=== PATIENT | female | born 1950 | race Caucasian/White ===

== ENCOUNTER → 2020-05-01 13:13 | Outpatient (BNVA) | payer MEDICARE, SELFPAY | PROVIDERS: Family Provider Nurse Practitioner Family; PCP Family Medicine; Visit Provider Nurse Practitioner Family | DX: I10 Essential (primary) hypertension (principal); E55.9 Vitamin D deficiency, unspecified | CPT/HCPCS: 80053; 80061; 82306; 84443; 85025 ==

== ENCOUNTER → 2020-07-31 16:18 | Outpatient (BNVA) | payer MEDICARE, SELFPAY | PROVIDERS: Family Provider Nurse Practitioner Family; PCP Family Medicine; Visit Provider Family Medicine | DX: R30.0 Dysuria (principal) | CPT/HCPCS: 81000 ==

== ENCOUNTER 2020-10-01 09:32 | Outpatient (CLI) | payer MEDICARE, SELFPAY ==
[2020-10-01] MEDS: iohexol 300 mg/mL 50 mL Btl PO (10:50)
--- NOTE | 2020-10-01 11:00 | CT_ITS ---
WS: [id number] CT ABDOMEN AND PELVIS WITH CONTRAST HISTORY: K57.92 - Diverticulitis of intestine, part unspecified, without perforation or abscess witho ut bleeding TECHNIQUE: Imaging performed of the abdomen and pelvis with IV contrast. Single phase imaging of the abdomen. Coronal and sagittal reformats are submitted. All CT scans at [facility] use at least one of these dose optimization techniques: automated exposure control; mA and/or kV adjustment per patient size (includes targeted exams where dose is matched to clinical indication); or iterativ e reconstruction. IV CONTRAST: Omnipaque 300; 95 mL IV. Oral contrast: Yes. DLP: 1174.29 mGycm COMPARISON: 03/24/2016 Lower thorax: Lung bases are clear. Heart is normal size. Large hiatal hernia. Greater than 50% of th e stomach is intrathoracic. Liver/biliary system: Normal size liver. There are a few hypodensities within the liver. The largest measuring 12 mm is unchanged since 2016. There is a smaller hypodensity which was also present in the periphery. No solid mass. Normal portal vein. No duct dilatation. Gallbladder: Status post cholecystectomy. Pancreas: Normal. Spleen: Granulomata. Normal size. Adrenal glands: Normal. Right kidney: Normal. Left kidney: Normal. Aorta: Normal. Lymphadenopathy: None. Free fluid: None. GI tract: Diffuse diverticulosis throughout the colon. Innumerable diverticula are present. There are mild inflammatory changes surrounding the diverticula in the sigmoid. No adjacent free air. There is no obstructive pattern. No abscess or focal free fluid. The appendix has been removed. Abdominal wall: Fat-containing umbilical hernia. Pelvis: Well-distended urinary bladder. Prior hysterectomy. Bones: Mild S-shaped scoliosis lower thoracic and lumbar spine. No osteoblastic or osteolytic disease . CT/CT abdomen pelvis w con* [id number] IMPRESSION: 1. Mild acute sigmoid diverticulitis. No abscess or free fluid. 2. Diffuse diverticulosis throughout the colon. 3. Large hiatal hernia. 4. Hepatic cysts are stable. 5. Prior cholecystectomy, appendectomy and hysterectomy.
[2020-10-01] MEDS: iohexol 300 mg/mL 100 mL Btl IV (11:07)
== END 2020-10-01 09:33 | disposition home or self-care (01) ==
LOC: RADWPI 09:37
PROVIDERS: PCP Family Medicine; Visit Provider Nurse Practitioner Family
DX: K57.92 Diverticulitis of intestine, part unspecified, without perforation or abscess without bleeding (principal); K57.30 Diverticulosis of large intestine without perforation or abscess without bleeding; K44.9 Diaphragmatic hernia without obstruction or gangrene; K76.89 Other specified diseases of liver; Z90.49 Acquired absence of other specified parts of digestive tract; Q42.8 Congenital absence, atresia and stenosis of other parts of large intestine; Z90.710 Acquired absence of both cervix and uterus
CPT/HCPCS: 74177; 80053; 81003; 82150; 83690; 85025; 87086; Q9967

== ENCOUNTER → 2020-12-02 13:30 | Outpatient (BNVA) | payer MEDICARE, SELFPAY | PROVIDERS: PCP Family Medicine; Visit Provider Nurse Practitioner Family | DX: Z01.812 Encounter for preprocedural laboratory examination (principal); Z20.822 Contact with and (suspected) exposure to COVID-19 | CPT/HCPCS: 87635 ==

== ENCOUNTER → 2021-01-24 11:54 | Outpatient (BNVA) | payer MEDICARE, SELFPAY | PROVIDERS: PCP Family Medicine; Visit Provider Nurse Practitioner Family | DX: I10 Essential (primary) hypertension (principal); E55.9 Vitamin D deficiency, unspecified; B86 Scabies; E78.5 Hyperlipidemia, unspecified; K57.92 Diverticulitis of intestine, part unspecified, without perforation or abscess without bleeding; K21.9 Gastro-esophageal reflux disease without esophagitis | CPT/HCPCS: 80053; 80061; 82306; 84443; 85025 ==

== ENCOUNTER → 2021-11-26 10:12 | Outpatient (BNVA) | payer MEDICARE, SELFPAY | PROVIDERS: PCP Nurse Practitioner Family; Visit Provider Nurse Practitioner Family | DX: I10 Essential (primary) hypertension (principal); E55.9 Vitamin D deficiency, unspecified; E78.5 Hyperlipidemia, unspecified; K57.92 Diverticulitis of intestine, part unspecified, without perforation or abscess without bleeding; K21.9 Gastro-esophageal reflux disease without esophagitis | CPT/HCPCS: 80053; 80061; 81003; 82306; 84443; 85025 ==

== ENCOUNTER 2021-12-03 17:47 | Emergency (ER) | payer MEDICARE, SELFPAY ==
[2021-12-03 18:03] VITALS: BP 132/82; PULSE 104; RESP 16; TEMP 36.5; O2SAT 95; BMI 29.1
--- NOTE | 2021-12-03 18:09 | W.ED.ABDPA2 ---
HPI - Abdominal Pain General: Chief Complaint: Abdominal Pain Stated Complaint: Pt States a flare up of dibraticulitis Time Seen by Provider: 12/03/21 18:08 History of Present Illness: Ms Mcclellan is a 71-year-old lady with history of hypertension, hyperlipidemia, extensive diverticulosis with frequent episodes of diverticulitis who presents to the emergency department due to left lower quadrant pain concerning for diverticulitis. She reports symptom onset for 5 days ago and was without specific provoking factor gradual. She noticed left lower quadrant burning pain which initially was mild however since worsened. She has associated fevers, nausea, vomiting, and diarrhea. Vomit and diarrhea are nonbloody. There is some radiation to the right abdomen. Symptoms are worse with movement and attempting to eat. She saw her primary care provider and has been on antibiotics for about 3 days but has failed to improve. Overall course of symptoms has been worsening. Intensity is moderate. The symptoms are similar to prior episodes. She does have a history of abdominal surgeries including colon resection. No other specific changes in health, exacerbating, or alleviating factors identified. Onset (ago): day(s) Pain Consistency: constant Location: LLQ Severity: moderate Quality: burning Radiation: RLQ Exacerbating factors: eating and movement Relieving factors: nothing Associated Symptoms: Reports diarrhea, nausea, poor appetite and vomiting Review of Systems General: Reports: 10 or more systems reviewed and unremarkable except in HPI and below GI: Reports: nausea, vomiting and diarrhea [facility] ED PFSH: Medical History (Updated 12/03/21 @ 22:13 by Charles Guthrie MD) GERD (gastroesophageal reflux disease) Hypertension Osteoarthritis Vitamin D deficiency Surgical History History of hernia repair History of hysterectomy History of knee replacement Social History Smoking and tobacco status: never smoked Second hand smoke exposure: No Alcohol intake: never Lives independently: Yes Household members: spouse Marital status: service: No Current occupational status: retired History of recent travel: No Current gender identity: Female Special kadie needs: No Physical Exam Const: COMMON NORMALS: alert GENERAL APPEARANCE: cooperative, well developed and ill appearing (Mildly) HENMT: COMMON NORMALS: normocephalic and atraumatic HEAD & SCALP: normocephalic and atraumatic THROAT: posterior oropharynx normal Eye: COMMON NORMALS: conjunctivae normal CONJUNCTIVA: Yes conjunctivae normal SCLERA: sclerae normal Neck/C-Spine: COMMON NORMALS: supple GENERAL: Yes trachea midline Resp: COMMON NORMALS: normal respiratory effort and clear to auscultation bilaterally EFFORT & INSPECTION: Yes able to speak in complete sentences AUSCULTATION: clear to auscultation bilaterally Cardio: COMMON NORMALS: regular rhythm RATE: tachycardic RHYTHM: regular rhythm GI: COMMON NORMALS: Soft to palpation PALPATION: Yes Soft to palpation, Yes Tenderness to palpation present (GI) Details: LLQ, No Guarding due to palpation present (GI) and No Rigid due to palpation Extremity: GENERAL: Yes normal exam except as noted and No edema Neuro: COMMON NORMALS: moves all extremities SENSORIUM/ORIENTATION: Yes alert and No Orientation impaired Psych: COMMON NORMALS: mental status grossly normal and Normal thought process present THOUGHT PROCESS: Normal thought process present Course ED course: - Patient was seen and evaluated by me at bedside - Patient placed on cardiac monitors, IV access obtained - Initial evaluation notable for exam as above - Labs personally interpreted by me - Symptom treatment ordered - Labs notable for no leukocytosis, normal hemoglobin. Metabolic panel without acute derangement to explain symptoms. Squamous epithelial contamination on urinalysis without concerning findings for UTI. - Imaging notable for no acute finding on CT abdomen pelvis to explain patient's symptoms. - Upon serial reexamination after treatment the patient was improved - Based on patient history, evaluation, and testing as interpreted the most likely cause of the patient's condition is abdominal pain of uncertain etiology. Certainly the patient has been on antibiotics for a few days and this may be suppressing findings. It is certainly plausible that diverticulitis is improving with treatment. Patient is nontoxic and no evidence of sepsis. She is improved with treatment. - The results of ED evaluation were discussed with the patient including prescriptions and/or symptomatic cares (if applicable) including appropriate and responsible use, followup plan, and return precautions. The patient verbalized understanding and felt safe for discharge. - Patient discharged in satisfactory condition. Note: Click bubbles or prepopulated delacruz in note writing are used for assistance with data collection and billing and are inherently more limited than narrative and other text portions of this note. Please use narrative for additional clinical history and defer to narrative/free test for any case of contradictory information. If information appears in only free text or click bubble it should be considered present or absent as reported. Please contact note typewriter aligner for clarifications of clinical information or contradictory information. MDM is a brief summary, contradictory or erroneous seeming information should be clarified and full note should be reviewed. Vital Signs: Vital signs: Vital Signs Temperature 97.7 F 12/03/21 18:03 Pulse Rate 82 12/03/21 22:39 Respiratory Rate 18 12/03/21 22:39 Blood Pressure 147/78 12/03/21 22:39 Pulse Oximetry 97 12/03/21 22:39 MDM - Abdominal Pain Medical Decision Making 71-year-old lady with history of recurrent diverticulitis presenting with left lower quadrant abdominal pain associated with diarrhea, nausea, vomiting. Nontoxic in appearance, labs unremarkable. CT unremarkable. ?Improved from antibiotics that she is taking versus other unspecified cause of abdominal pain. Patient does have a history of endoscopy. Given improvement in symptoms and overall clinical picture she is satisfactory for outpatient management with analgesia, antiemetic, and strict return precautions. Medical Records I reviewed the patient's medical records. Lab Data I reviewed the patient's lab results. : 12/03/21 19:15 12/03/21 19:15 Labs/Radiology: Radiology Impressions Abdomen/Pelvis CT 12/03/21 19:03 IMPRESSION: 1. No acute findings. 2. Additional incidental findings described in the body of the report. Laboratory Results WBC 5.9 10^3/uL (4.0-10.0) 12/03/21 19:15 RBC 4.52 10^6/uL (4.1-5.3) 12/03/21 19:15 Hgb 13.6 g/dL (11.5-15.3) 12/03/21 19:15 Hct 42.9 % (37.0-47.0) 12/03/21 19:15 MCV 94.9 fl (81-99) 12/03/21 19:15 MCH 30.1 pg (28.0-34.0) 12/03/21 19:15 MCHC 31.7 g/dL (30.0-36.0) 12/03/21 19:15 RDW 13.1 % (12.1-15.1) 12/03/21 19:15 Plt Count 250 10^3/cmm (130-400) 12/03/21 19:15 MPV 9.9 fL (7.4-10.4) 12/03/21 19:15 Neut % (Auto) 83.6 % 12/03/21 19:15 Lymph % (Auto) 11.9 % 12/03/21 19:15 [place] % (Auto) 3.7 % 12/03/21 19:15 Eos % (Auto) 0.3 % 12/03/21 19:15 Baso % (Auto) 0.3 % 12/03/21 19:15 Neut # (Auto) 4.93 10^3/uL (1.8-7.7) 12/03/21 19:15 Lymph # (Auto) 0.7 10^3/uL (0.8-4.8) L 12/03/21 19:15 [place] # (Auto) 0.2 10^3/uL (0.2-0.9) 12/03/21 19:15 Eos # (Auto) 0.0 10^3/uL (0.0-0.8) 12/03/21 19:15 Baso # (Auto) 0.0 10^3/uL (0.0-0.1) 12/03/21 19:15 Nucleated RBC % (auto) 0 % 12/03/21 19:15 Nucleated RBCs # 0.0 /100WBC 12/03/21 19:15 Sodium 137 mmol/L (136-145) 12/03/21 19:15 Potassium 4.0 mmol/L (3.5-5.1) 12/03/21 19:15 Chloride 101 mmol/L (98-107) 12/03/21 19:15 Carbon Dioxide 23 mmol/L (22-29) 12/03/21 19:15 Anion Gap 17.0 (5-19) 12/03/21 19:15 BUN 18 mg/dL (8-23) 12/03/21 19:15 Creatinine 0.8 mg/dL (0.5-0.9) 12/03/21 19:15 GFR Calculation Not Reportable 12/03/21 19:15 Glucose 109 mg/dL (65-115) 12/03/21 19:15 Calculated Osmolality 286 mOsm/kg (285-295) 12/03/21 19:15 Lactic Acid 1.1 mmol/L (0.5-2.2) 12/03/21 19:15 Calcium 8.2 mg/dL (8.5-10.5) L 12/03/21 19:15 Total Bilirubin 0.7 mg/dL (0.15-1.2) 12/03/21 19:15 AST 32 U/L (0-32) 12/03/21 19:15 ALT 20 U/L (0-33) 12/03/21 19:15 Alkaline Phosphatase 87 IU/L (35-105) 12/03/21 19:15 Total Protein 7.8 g/dL (6.6-8.7) 12/03/21 19:15 Albumin 4.4 g/dL (3.5-5.2) 12/03/21 19:15 Globulin 3.4 g/dL (1.3-4.6) 12/03/21 19:15 Lipase 17 U/L (13-60) 12/03/21 19:15 Urine Color Yellow (Yellow) 12/03/21 21:08 Urine Appearance Sl hazy (CLEAR) 12/03/21 21:08 Urine pH 5 (5-7) 12/03/21 21:08 Ur Specific [place] 1.015 (1.005-1.030) 12/03/21 21:08 Urine Protein Neg (Negative) 12/03/21 21:08 Urine Glucose (UA) Norm (Normal) 12/03/21 21:08 Urine Ketones 1+ (Negative) H 12/03/21 21:08 Urine Blood Neg (Negative) 12/03/21 21:08 Urine Nitrate Negative (Negative) 12/03/21 21:08 Urine Bilirubin 1+ (Negative) H 12/03/21 21:08 Urine Urobilinogen 1 mg/dL (Negative) H 12/03/21 21:08 Ur Leukocyte Esterase Trace (Negative) H 12/03/21 21:08 Urine RBC 0-4 /hpf (0-2) H 12/03/21 21:08 Urine WBC 0-4 /hpf (0-5) H 12/03/21 21:08 Ur Squamous Epith Cells 15-25 /hpf (0-5) H 12/03/21 21:08 Amorphous Sediment Not Reportable 12/03/21 21:08 Urine Bacteria Trace /hpf (NONE) 12/03/21 21:08 Urine Mucus Trace /hpf 12/03/21 21:08 Discharge Plan Discharge Patient Disposition: Home Clinical Impression: Abdominal pain, Nausea, vomiting, and diarrhea Condition: Stable Prescriptions: New ondansetron 4 mg tablet,disintegrating 4 mg PO TID PRN (Reason: nausea and vomiting) Qty: 15 0RF oxycodone 5 mg tablet 5 mg PO Q4H PRN (Reason: pain) Qty: 10 0RF No Action fluticasone propionate [Flonase Allergy Relief] 50 mcg/actuation spray,suspension 2 spray INTRANASAL QDAY Qty: 9.9 0RF Rx Instructions: administer into each nostril aspirin 325 mg tablet 325 mg PO DAILY 0RF promethazine-DM 6.25-15 mg/5 mL syrup 5 ml PO Q6H Qty: 118 1RF metronidazole 500 mg tablet 500 mg PO TID 14 Days Qty: 42 0RF sulfamethoxazole-trimethoprim [Bactrim DS] 800-160 mg tablet 1 tab PO BID Qty: 28 0RF metoprolol tartrate 25 mg tablet See Rx Instructions .ROUTE .COMPLEX Qty: 180 3RF Dose Instruction: TAKE 1 TABLET BY MOUTH TWICE DAILY Rx Instructions: TAKE 1 TABLET BY MOUTH TWICE DAILY omeprazole 20 mg capsule,delayed release(DR/EC) See Rx Instructions .ROUTE .COMPLEX Qty: 90 3RF Dose Instruction: TAKE 1 CAPSULE BY MOUTH DAILY Rx Instructions: TAKE 1 CAPSULE BY MOUTH DAILY cholecalciferol (vitamin D3) 1,250 mcg (50,000 unit) tablet 1,250 mcg PO .COMPLEX Qty: 12 1RF Rx Instructions: 1,250 mcg PO weekly; Discharge Orders: Discharge ED (Routine); Ordered 12/03/21 Ordered By: Charles Guthrie Referrals: Azra Oliver, [employer]HANGER APPRENTICE [Primary Care Provider] - Discharge Diet: Advance as tolerated and Clear Liquid Discharge Activity: Increase activity as tolerated Patient Instructions: Diverticulitis (ED), Diverticulitis Diet (ED), Abdominal Pain (ED), Opioid Safety Activity Restrictions/Additional Instructions: Thank you for visiting the emergency department. You were seen and evaluated for abdominal pain, vomiting, diarrhea. The exact cause of your symptoms is unclear. I believe that your symptoms may be related to your diverticulitis however given your course of antibiotics we do not see significant abnormality on CT or laboratory studies. Please continue your antibiotics. You will be given a prescription for pain medication and nausea medication. Please follow-up with your primary care provider. Please return to the emergency department for worsening symptoms or anything else that you are concerned about and feel needs emergency department evaluation. Coding Level of Care Code ED Glass Sagger for Marc Truong Exam Comprehensive
[2021-12-03 18:23] VITALS: BP 148/87; PULSE 95; RESP 18; O2SAT 97
--- NOTE | 2021-12-03 19:03 | CTR_ITS ---
PROCEDURE INFORMATION: Exam: CT Abdomen And Pelvis With Contrast Exam date and time: 12/03/2021 8:21 PM Age: 71 years old Clinical indication: Abdominal pain; Generalized; Additional info: Llq pain, n/v/d, HX diverticulitis TECHNIQUE: Imaging protocol: Computed tomography of the abdomen and pelvis with contrast. Radiation optimization: All CT scans at this facility use at least one of these dose optimization techniques: automated exposure control; mA and/or kV adjustment per patient size (includes targeted exams where dose is matched to clinical indication); or iterative reconstruction. Contrast material: OMNI 300; Contrast volume: 95 ml; Contrast route: INTRAVENOUS (IV); COMPARISON: CT abdomen pelvis w con* [id number] 10/01/2020 11:04 AM RADIATION DOSE METRICS: Total DLP (mGy-cm): 1480.85 FINDINGS: Liver: Scattered cysts in the right hepatic lobe measuring up to 1.6 cm in size. Gallbladder and bile ducts: Cholecystectomy with prominence of the common hepatic duct up to 1.3 cm likely secondary to reservoir effect. Pancreas: Normal. No ductal dilation. Spleen: Normal. No splenomegaly. Adrenal glands: Normal. No mass. Kidneys and ureters: Subcentimeter cysts. No hydronephrosis. Stomach and bowel: Moderate-sized hiatal hernia containing the proximal portion of the stomach. Sequela of sigmoidectomy. Colonic diverticulosis without findings of acute diverticulitis. No obstruction. No mucosal thickening. Appendix: No evidence of appendicitis. Intraperitoneal space: Unremarkable. No free air. No significant fluid collection. Arteries: Unremarkable. No abdominal aortic aneurysm. Lymph nodes: Unremarkable. No enlarged lymph nodes. Urinary bladder: Unremarkable as visualized. Reproductive: Hysterectomy. Bones/joints: No acute fracture. Soft tissues: Small fat containing umbilical hernia. CT/CT abdomen pelvis w con* [id number] IMPRESSION: 1. No acute findings. 2. Additional incidental findings described in the body of the report.
[2021-12-03 19:24] LABS: Basophils % 0.3 %; Eosinophils % 0.3 %; Hematocrit 42.9 % (37.0-47.0); Hemoglobin 13.6 g/dL (11.5-15.3); Lymphocytes # 0.7 10^3/uL (0.8-4.8); Lymphocytes % 11.9 %; Mean Corpuscular HGB Conc 31.7 g/dL (30.0-36.0); Mean Corpuscular Hemoglobin 30.1 pg (28.0-34.0); Mean Corpuscular Volume 94.9 fl (81-99); Mean Platelet Volume 9.9 fL (7.4-10.4); Monocytes # 0.2 10^3/uL (0.2-0.9); Monocytes % 3.7 %; Neutrophils # 4.93 10^3/uL (1.8-7.7); Neutrophils % 83.6 %; Nucleated Red Blood Cells % 0 %; Platelet Count 250 10^3/cmm (130-400); Red Blood Count 4.52 10^6/uL (4.1-5.3); Red Cell Distribution Width 13.1 % (12.1-15.1); White Blood Count 5.9 10^3/uL (4.0-10.0)
[2021-12-03 19:44] LABS: Lactic Sepsis W/Reflex 1.1 mmol/L (0.5-2.2)
[2021-12-03 19:49] VITALS: RESP 18
[2021-12-03] MEDS: fentaNYL 50 mcg/mL INJ 2mL IVP (19:49)
[2021-12-03] MEDS: ondansetron 2 mg/ML SDV 2 mL 4 MG IVP (19:49)
[2021-12-03] MEDS: lactated ringers 500 ML 999 ML IV ×2 (19:50→19:51)
[2021-12-03 19:53] LABS: Alanine Aminotransferase 20 U/L (0-33); Albumin Level 4.4 g/dL (3.5-5.2); Alkaline Phosphatase 87 IU/L (35-105); Aspartate Amino Transferase 32 U/L (0-32); Blood Urea Nitrogen 18 mg/dL (8-23); Calcium 8.2 mg/dL (8.5-10.5); Carbon Dioxide 23 mmol/L (22-29); Chloride 101 mmol/L (98-107); Globulin 3.4 g/dL (1.3-4.6); Glucose 109 mg/dL (65-115); Lipase 17 U/L (13-60); Osmolality Calculated 286 mOsm/kg (285-295); Sodium 137 mmol/L (136-145); Total Bilirubin 0.7 mg/dL (0.15-1.2); Total Protein 7.8 g/dL (6.6-8.7)
[2021-12-03] MEDS: iohexol 300 mg/mL 100 mL Btl IV (20:30)
[2021-12-03 21:31] VITALS: BP 134/90; PULSE 80; RESP 20; O2SAT 98
[2021-12-03 21:42] LABS: Bilirubin Urine 1+ (Negative); Blood Urine Neg (Negative); Glucose Urine UA Norm (Normal); Ketones Urine 1+ (Negative); Nitrate Urine Negative (Negative); Protein Urine Neg (Negative); Specific Gravity, Urine 1.015 (1.005-1.030); Urine Appearance SL Hazy (CLEAR); Urine Color Yellow (Yellow); Urobilinogen Urine 1 mg/dL (Negative); pH Urine 5 (5-7)
[2021-12-03 21:43] LABS: Add Urine Microscopic? YES; Leukocyte Esterase Urine Trace (Negative)
[2021-12-03 21:44] LABS: Add Urine Culture? No; Bacteria Urine TRACE /hpf; Mucus Urine TRACE /hpf; RBC Urine 0-4 /hpf (0-2); Squamous Epithelial Cell Urine 15-25 /hpf (0-5); WBC Urine 0-4 /hpf (0-5)
[2021-12-03 22:39] VITALS: BP 147/78; PULSE 82; RESP 18; O2SAT 97
== END 2021-12-03 22:40 | disposition home or self-care (01) ==
PROVIDERS: Emergency Medicine; Emergency Provider Emergency Medicine; PCP Nurse Practitioner Family
DX: R10.9 Unspecified abdominal pain (principal); R11.2 Nausea with vomiting, unspecified; R19.7 Diarrhea, unspecified; K57.90 Diverticulosis of intestine, part unspecified, without perforation or abscess without bleeding
CPT/HCPCS: 74177; 80053; 81001; 83605; 83690; 85025; 96374; 96375; 99284; J2405; J3010; Q9967

== ENCOUNTER 2021-12-25 06:00 | Outpatient (RCR) | payer MEDICARE, SELFPAY | END 2022-01-20 23:59 | disposition home or self-care (01) | LOC: TPT 06:00 | PROVIDERS: PCP Nurse Practitioner Family; Referring Provider Nurse Practitioner Family; Visit Provider Nurse Practitioner Family | DX: R53.1 Weakness (principal) | CPT/HCPCS: 97110; 97163 ==

== ENCOUNTER → 2022-02-25 15:55 | Outpatient (BNVA) | payer MEDICARE, SELFPAY | PROVIDERS: PCP Nurse Practitioner Family; Visit Provider Nurse Practitioner Family | DX: M16.11 Unilateral primary osteoarthritis, right hip (principal); M25.551 Pain in right hip | CPT/HCPCS: 73502 ==

== ENCOUNTER → 2022-03-03 14:36 | Outpatient (BNVA) | payer MEDICARE, SELFPAY | PROVIDERS: PCP Nurse Practitioner Family; Referring Provider Nurse Practitioner Family; Visit Provider Orthopaedic Surgery | DX: M25.551 Pain in right hip (principal); M79.7 Fibromyalgia | CPT/HCPCS: 99203 ==

== ENCOUNTER → 2022-08-18 18:03 | Outpatient (BNVA) | payer MEDICARE, SELFPAY | PROVIDERS: PCP Nurse Practitioner Family; Visit Provider Nurse Practitioner Family | DX: R30.0 Dysuria (principal); J18.9 Pneumonia, unspecified organism; M25.571 Pain in right ankle and joints of right foot; B37.9 Candidiasis, unspecified | CPT/HCPCS: 80053; 84550 ==

== ENCOUNTER → 2022-08-31 10:34 | Outpatient (BNVA) | payer MEDICARE, SELFPAY | PROVIDERS: PCP Nurse Practitioner Family; Visit Provider Nurse Practitioner Family | DX: M79.671 Pain in right foot (principal); M25.571 Pain in right ankle and joints of right foot | CPT/HCPCS: 73610; 73630 ==

== ENCOUNTER → 2022-09-23 08:47 | Outpatient (BNVA) | payer MEDICARE, SELFPAY | PROVIDERS: PCP Nurse Practitioner Family; Visit Provider Podiatrist Foot & Ankle Surgery | DX: M72.2 Plantar fascial fibromatosis (principal) | CPT/HCPCS: 99203 ==

== ENCOUNTER 2022-11-16 14:24 | Outpatient (CLI) | payer MEDICARE, SELFPAY | END 2022-11-16 14:25 | disposition home or self-care (01) | LOC: SPT 14:25 | PROVIDERS: PCP Nurse Practitioner Family; Visit Provider Podiatrist Foot & Ankle Surgery | DX: Z46.89 Encounter for fitting and adjustment of other specified devices (principal); M72.2 Plantar fascial fibromatosis | CPT/HCPCS: 97760; 99213; L4397 ==

== ENCOUNTER → 2023-01-05 13:30 | Outpatient (BNVA) | payer MEDICARE, SELFPAY | PROVIDERS: PCP Nurse Practitioner Family; Visit Provider Nurse Practitioner Family | DX: E78.5 Hyperlipidemia, unspecified (principal); M79.7 Fibromyalgia; I10 Essential (primary) hypertension; K21.9 Gastro-esophageal reflux disease without esophagitis; E55.9 Vitamin D deficiency, unspecified | CPT/HCPCS: 80053; 80061; 82306; 84443 ==

== ENCOUNTER → 2023-01-11 11:38 | Outpatient (BNVA) | payer MEDICARE, SELFPAY | PROVIDERS: PCP Nurse Practitioner Family; Visit Provider Nurse Practitioner Family | DX: R94.4 Abnormal results of kidney function studies (principal); N18.6 End stage renal disease; R30.0 Dysuria | CPT/HCPCS: 80053; 82043 ==

== ENCOUNTER 2023-01-12 07:59 | Outpatient (CLI) | payer MEDICARE, SELFPAY ==
[2023-01-12] MEDS: iohexol 350 mg/mL 500 mL Btl (per mL) PO (08:35)
--- NOTE | 2023-01-12 09:30 | CT_ITS ---
WS: [id number] CT ABDOMEN AND PELVIS NONCONTRAST HISTORY: Hiatal hernia TECHNIQUE: Imaging performed through the abdomen and pelvis. Coronal and sagittal reformats are submi tted. All CT scans at [facility] use at least one of these dose optimization techniques: auto mated exposure control; mA and/or kV adjustment per patient size (includes targeted exams where dose is matched to clinical indication); or iterative reconstruction. DLP: 445.67 mGy.cm COMPARISON: 12/03/2021 Lower thorax: Lung bases are clear. Visualized heart is normal. Large hiatal hernia. Liver: Normal size liver. Hepatic granulomatous. Stable low-attenuation masses in the RIGHT lobe of t he liver with the largest measuring 1.6 cm in diameter. No bile duct dilatation. Gallbladder: Prior cholecystectomy. Pancreas: Normal size and attenuation. Normal pancreatic duct. No pancreatitis or mass. Spleen: Granulomatous. Adrenal glands: Normal. No mass. Right kidney: Normal size kidney with no mass or hydronephrosis. Left kidney: Normal size kidney with no mass or hydronephrosis. Aorta: Mild atherosclerosis abdominal aorta with no aneurysm. No free fluid, intraperitoneal air or significant lymphadenopathy. GI tract: Large portion of the stomach is intrathoracic. No small bowel obstruction. Extensive divert icular disease throughout the entire colon. No obstructive pattern. No evidence for acute diverticuli tis. No evidence for appendicitis. Abdominal wall: Small umbilical hernia contains fat only. Pelvis: No free fluid or adenopathy. Prior hysterectomy. Minimally distended urinary bladder. Osseous structures: Unremarkable. CT/CT abdomen pelvis wo con [id number] IMPRESSION: 1. Cloud diverticulosis. Extensive diverticular disease without evidence for acu te diverticulitis and no obstruction. 2. Prior hysterectomy and cholecystectomy. 3. Stable hepatic cysts. 4. No renal obstruction. 5. Large hiatal hernia.
== END 2023-01-12 08:00 | disposition home or self-care (01) ==
LOC: RAD 07:59
PROVIDERS: PCP Nurse Practitioner Family; Visit Provider Nurse Practitioner Family
DX: K44.9 Diaphragmatic hernia without obstruction or gangrene (principal); K21.9 Gastro-esophageal reflux disease without esophagitis; K57.30 Diverticulosis of large intestine without perforation or abscess without bleeding; K76.89 Other specified diseases of liver
CPT/HCPCS: 74176; Q9967

== ENCOUNTER 2023-01-20 13:57 | Outpatient (CLI) | payer MEDICARE, SELFPAY ==
--- NOTE | 2023-01-20 14:13 | MM_ITS ---
WS: [id number] BILATERAL 3D TOMOSYNTHESIS DIGITAL SCREENING MAMMOGRAPHY WITH CAD CLINICAL INFORMATION: screening HISTORY: Screening mammogram. No current complaints. COMPARISON: 2019 TECHNIQUE: Bilateral CC and MLO views. FINDINGS: The breasts are composed of heterogeneous fibroglandular density tissue, which can limit the detectio n of small underlying mass lesions. No suspicious mass, asymmetry, calcifications, or architectural d istortion. No evidence of malignancy. Punctate and lucent centered calcifications. Vascular calcifica tions. Stable well-circumscribed 1.8 cm asymmetric density 12:00 RIGHT breast. This demonstrates long -term stability. Stable subareolar calcifications RIGHT breast. MM/[id number] IMPRESSION: BI-RADS: 2-Benign FOLLOW UP: 1 Year Follow-up Recommend return to annual screening mammography.
--- NOTE | 2023-01-20 14:30 | XR_ITS ---
WS: [id number] DEXA (DUAL ENERGY X-RAY ABSORPTIOMETRY) Bone mineral density was performed using a [employer] machine. HISTORY: Screening COMPARISON: 11/24/2017 Lumbar spine BMD (L1-L4): 0.973 g/cm2 T score: -1.7 Z score: -0.7 Total hip BMD: Left: 0.804 g/cm2. T score: -1.6 Z score: -0.4 Right: 0.829 g/cm2. T score: -1.4 Z score: -0.2 10 year probability of a major osteoporotic fracture is 25%. Compared to the prior study from 11/24/2017. Lumbar spine bone mineral density has decreased by 3.2%. Bilateral hips bone mineral density has decreased by 2.7%. XR/XR DEXA axial skeleton* [id number] IMPRESSION: OSTEOPENIA based upon the WHO classification for females. Significant decrease in bone mineral density within the lumbar spine and hips s mauro the prior study.
== END 2023-01-20 13:58 | disposition home or self-care (01) ==
LOC: RAD 14:01
PROVIDERS: PCP Nurse Practitioner Family; Visit Provider Nurse Practitioner Family
DX: Z12.31 Encounter for screening mammogram for malignant neoplasm of breast (principal); Z78.0 Asymptomatic menopausal state; R94.4 Abnormal results of kidney function studies
CPT/HCPCS: 77063; 77067; 77080; 80053

== ENCOUNTER → 2023-10-11 09:54 | Outpatient (BNVA) | payer MEDICARE, SELFPAY | PROVIDERS: PCP Nurse Practitioner Family; Visit Provider Nurse Practitioner Family | DX: I10 Essential (primary) hypertension (principal); E78.5 Hyperlipidemia, unspecified; E55.9 Vitamin D deficiency, unspecified; M79.7 Fibromyalgia | CPT/HCPCS: 80053; 80061; 82306; 85025 ==

== ENCOUNTER 2023-10-13 07:50 | Outpatient (CLI) | payer MEDICARE, SELFPAY ==
--- NOTE | 2023-10-13 08:45 | US_ITS ---
WS: [id number] ULTRASOUND SOFT TISSUES HISTORY: neck lump COMPARISON: None available. TECHNIQUE: 2-D and color Doppler imaging is submitted. Palpable area is localized to the anterior upper neck. There is a complex cystic mass with thick mitchell ins and slight nodularity. No increased vascularity. There is a small tract extending superficial. Th is is most consistent with a sebaceous or epidermoid cyst. This complex cystic collection measures 7 x 3 x 5 mm. IMPRESSION: Palpable area along the mid anterior neck is most consistent with an epidermoid or sebaceous cyst.
== END 2023-10-13 07:51 | disposition home or self-care (01) ==
LOC: RAD 07:51
PROVIDERS: PCP Nurse Practitioner Family; Visit Provider Nurse Practitioner Family
DX: R22.1 Localized swelling, mass and lump, neck (principal)
CPT/HCPCS: 76536

== ENCOUNTER → 2023-11-02 12:38 | Outpatient (BNVA) | payer MEDICARE, SELFPAY | PROVIDERS: PCP Nurse Practitioner Family; Visit Provider Podiatrist Foot & Ankle Surgery | DX: L60.0 Ingrowing nail (principal) | CPT/HCPCS: 99203 ==

== ENCOUNTER 2024-01-26 12:54 | Outpatient (CLI) | payer MEDICARE, SELFPAY ==
--- NOTE | 2024-01-26 13:00 | MM_ITS ---
WS: [id number] BILATERAL 3D TOMOSYNTHESIS DIGITAL SCREENING MAMMOGRAPHY WITH CAD CLINICAL INFORMATION: screening HISTORY: Screening mammogram. No current complaints. COMPARISON: 2022 TECHNIQUE: Bilateral CC and MLO views. FINDINGS: The breasts are composed of heterogeneous fibroglandular density tissue, which can limit the detectio n of small underlying mass lesions. No suspicious mass, asymmetry, calcifications, or architectural d istortion. No evidence of malignancy. Stable dense nodular breast tissue upper outer quadrants bilate rally. Vascular calcification. A few incidental punctate and lucent centered calcifications. Long-ter m stability 1.8 cm focal asymmetric density RIGHT breast at the 12 o'clock position. MM/[id number] IMPRESSION: BI-RADS: 2-Benign FOLLOW UP: 1 Year Follow-up Recommend return to annual screening mammography.
== END 2024-01-26 12:55 | disposition home or self-care (01) ==
LOC: RAD 12:54
PROVIDERS: PCP Nurse Practitioner Family; Visit Provider Nurse Practitioner Family
DX: Z12.31 Encounter for screening mammogram for malignant neoplasm of breast (principal); R92.333 Mammographic heterogeneous density, bilateral breasts; N63.21 Unspecified lump in the left breast, upper outer quadrant; N63.11 Unspecified lump in the right breast, upper outer quadrant; R92.1 Mammographic calcification found on diagnostic imaging of breast; N64.89 Other specified disorders of breast
CPT/HCPCS: 77063; 77067

== ENCOUNTER 2024-02-29 10:11 | Outpatient (CLI) | payer MEDICARE, SELFPAY ==
--- NOTE | 2024-02-29 10:45 | CT_ITS ---
WS: [id number] LDCT LUNG CANCER SCREENING TECHNIQUE: Noncontrast CT of the chest with coronal and sagittal reformatted images. CLINICAL INFORMATION: screening COMPARISON: None. DLP: 70.30 mGy.cm DIvol: Mean CTDIvol: 1.50 (mGy) All CT scans at [facility] use at least one of these dose optimization techniques: automat ed exposure control; mA and/or kV adjustment per patient size (includes targeted exams where dose is matched to clinical indication); or iterative reconstruction. FINDINGS: 4 mm nodule along the LEFT fissure. A few tiny noncalcified nodules in the upper lobes. No other susp icious pulmonary parenchymal abnormalities. RIGHT breast nodule at 12 o'clock position with long-term stability on the prior mammograms measuring 1.5 cm. Splenic granulomas. Splenic artery calcification. Postoperative changes at the GE junction with hiata l hernia. Hepatomegaly. Nodular contour to the liver with multiple low-attenuation lesions similar to the prior CT 2022 likely hepatic cysts. Largest in the RIGHT hepatic lobe measuring 1.5 cm. Adrenal glands are normal. Nodular thyroid. Normal caliber thoracic aorta. Aortic calcification. No m ediastinal or hilar lymphadenopathy. Calcified RIGHT hilar lymph nodes. Subcutaneous likely sebaceous cyst in the midline epigastric soft tissues measuring 1.8 x 1.5 cm. Rec ommend clinical correlation. Thoracic scoliosis convex RIGHT. Moderate thoracic kyphosis. Splenic fle xure diverticulosis. CT/CT lung screening [id number] IMPRESSION: LUNG-RADS: 2-Benign Appearance or Behavior FOLLOW UP: 12 Month: Continue annual screening with LDCT
== END 2024-02-29 10:12 | disposition home or self-care (01) ==
LOC: RAD 10:11
PROVIDERS: PCP Nurse Practitioner Family; Visit Provider Nurse Practitioner Family
DX: Z12.2 Encounter for screening for malignant neoplasm of respiratory organs (principal)
CPT/HCPCS: 71271

== ENCOUNTER → 2024-08-28 13:10 | Outpatient (BNVA) | payer MEDICARE, SELFPAY | PROVIDERS: PCP Nurse Practitioner Family; Visit Provider Nurse Practitioner | DX: E55.9 Vitamin D deficiency, unspecified (principal); K57.92 Diverticulitis of intestine, part unspecified, without perforation or abscess without bleeding | CPT/HCPCS: 80053; 80061; 81000; 82306; 84443 ==

== ENCOUNTER → 2024-09-13 10:48 | Outpatient (BNVA) | payer MEDICARE, SELFPAY | PROVIDERS: PCP Nurse Practitioner; Visit Provider Nurse Practitioner | DX: E78.5 Hyperlipidemia, unspecified (principal); E55.9 Vitamin D deficiency, unspecified; K44.9 Diaphragmatic hernia without obstruction or gangrene; K21.9 Gastro-esophageal reflux disease without esophagitis; K57.92 Diverticulitis of intestine, part unspecified, without perforation or abscess without bleeding; I10 Essential (primary) hypertension; M85.89 Other specified disorders of bone density and structure, multiple sites | CPT/HCPCS: 80053; 80061; 82306; 84443 ==

== ENCOUNTER 2025-01-19 13:05 | Outpatient (CLI) | payer MEDICARE, SELFPAY ==
[2025-01-19] MEDS: iohexol 350 mg/mL 500 mL Btl (per mL) IV (14:26)
[2025-01-19] MEDS: iohexol 350 mg/mL 500 mL Btl (per mL) PO (14:26)
--- NOTE | 2025-01-19 15:30 | CTR_ITS ---
PROCEDURE INFORMATION: Exam: CT Abdomen And Pelvis With Contrast Exam date and time: 01/19/2025 2:37 PM Age: 74 years old Clinical indication: Condition or disease; Without gangrene and without obstruction; Other: Diaphragmatic; Prior surgery; Surgery date: 6+ months; Surgery type: Hiatal hernia, bowel resectin (diverticulitis), gb, appy, hyster, hernia x 2; Additional info: K44.9 - diaphragmatic hernia without obstruction or gangrene TECHNIQUE: Imaging protocol: Computed tomography of the abdomen and pelvis with contrast. Radiation optimization: All CT scans at this facility use at least one of these dose optimization techniques: automated exposure control; mA and/or kV adjustment per patient size (includes targeted exams where dose is matched to clinical indication); or iterative reconstruction. Contrast material: OMNI 350; Contrast volume: 100 ml; Contrast route: INTRAVENOUS (IV); COMPARISON: CT abdomen pelvis wo con [id number] 01/12/2023 9:14 AM RADIATION DOSE METRICS: Total DLP (mGy-cm): 530.96 FINDINGS: Lungs: Lung bases are clear. Diaphragm: No hiatal hernia. Liver: There are simple cysts in the right lobe of the liver measuring up to 17 mm. Gallbladder and biliary ducts: The gallbladder is absent. There is moderate dilation of the common bile duct and central intrahepatic ducts. Pancreas: There is mild atrophy of the pancreas. Spleen: Splenic size is normal. There are scattered calcifications consistent with healed granulomas. Adrenal glands: The adrenal glands are unremarkable. Kidneys and ureters: The kidneys are unremarkable. No hydronephrosis or stones. No ureteral dilation. Stomach and bowel: Intact gastric fundoplication. The stomach is nondistended, limiting assessment of wall thickness. The small bowel is nondilated. Severe pancolonic diverticulosis without evidence of diverticulitis. Unremarkable rectosigmoid anastomosis. Appendix: The appendix is not visible. Intraperitoneal space: There is no free air or significant intraperitoneal free fluid. 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 There is mild aortic atherosclerotic disease. The portal, splenic and superior mesenteric veins are patent. Lymph nodes: There is no lymphadenopathy in the retroperitoneum, mesentery, pelvis or inguinal regions. Urinary bladder: The urinary bladder is unremarkable. Reproductive: The uterus is absent. There is no adnexal mass or large cyst. Bones/joints: There is mild degenerative disease in the lumbar spine. The pelvis and hips are unremarkable. Soft tissues: There is laxity of the pelvic floor. Intact upper abdominal midline ventral hernia repair. There is a 17 mm subdermal nodule in the midline upper abdominal wall suggesting a sebaceous or epidermal inclusion cyst. There is a small fat containing umbilical hernia. CT/CT abdomen pelvis w con* [id number] IMPRESSION: 1. Intact gastric fundoplication. No hiatal hernia. 2. Incidental findings above.
[2025-01-19 15:39] LABS: Blood Urea Nitrogen 17 mg/dL (8-23)
== END 2025-01-19 13:06 | disposition home or self-care (01) ==
LOC: RAD 13:09
PROVIDERS: PCP Nurse Practitioner; Visit Provider Nurse Practitioner
DX: K44.9 Diaphragmatic hernia without obstruction or gangrene (principal); K21.9 Gastro-esophageal reflux disease without esophagitis; Z87.19 Personal history of other diseases of the digestive system; Z00.00 Encounter for general adult medical examination without abnormal findings; Z98.890 Other specified postprocedural states; K76.89 Other specified diseases of liver; R93.2 Abnormal findings on diagnostic imaging of liver and biliary tract; K86.89 Other specified diseases of pancreas; D73.89 Other diseases of spleen; K57.50 Diverticulosis of both small and large intestine without perforation or abscess without bleeding; R93.89 Abnormal findings on diagnostic imaging of other specified body structures; I70.0 Atherosclerosis of aorta; M51.369 Other intervertebral disc degeneration, lumbar region without mention of lumbar back pain or lower extremity pain; R93.5 Abnormal findings on diagnostic imaging of other abdominal regions, including retroperitoneum; K42.9 Umbilical hernia without obstruction or gangrene
CPT/HCPCS: 74177; 82565; 84520

== ENCOUNTER → 2025-01-31 16:12 | Outpatient (BNVA) | payer MEDICARE, SELFPAY | PROVIDERS: PCP Nurse Practitioner; Visit Provider Nurse Practitioner | DX: E78.5 Hyperlipidemia, unspecified (principal) | CPT/HCPCS: 80053; 80061 ==

== ENCOUNTER → 2025-04-11 10:27 | Outpatient (BNVA) | payer MEDICARE, SELFPAY | PROVIDERS: PCP Nurse Practitioner; Visit Provider Nurse Practitioner | DX: E55.9 Vitamin D deficiency, unspecified (principal) | CPT/HCPCS: 82306 ==

== ENCOUNTER → 2025-04-30 15:16 | Outpatient (BNVA) | payer MEDICARE, SELFPAY | PROVIDERS: PCP Nurse Practitioner; Visit Provider Clinical Nurse Specialist Adult Health | DX: J22 Unspecified acute lower respiratory infection (principal) | CPT/HCPCS: 87400; 87426 ==